=== PATIENT | male | born 1995 | race Caucasian/White ===

== ENCOUNTER 2019-08-14 22:58 | Emergency (ER) | payer OTHER ==
[~2019-08-14] VITALS: Ht 177.8 cm; Wt 83.9 kg
[2019-08-15 01:46] VITALS: BP 118/75
== END 2019-08-15 02:27 | disposition left against medical advice (07) ==
LOC: ER 22:58
DX: Z53.21 Procedure and treatment not carried out due to patient leaving prior to being seen by health care provider (principal)